=== PATIENT | male | born 1955 | race Caucasian/White ===

== ENCOUNTER 2016-10-23 04:02 | Emergency (ER) | payer OTHER ==
[~2016-10-23] VITALS: Ht 172.7 cm; Wt 78.2 kg
[2016-10-23] MEDS ORDERED: METO50 PO (04:11)
[2016-10-23] MEDS ORDERED: ASPI81 PO (04:11)
[2016-10-23] MEDS ORDERED: ALLO100T PO (04:11)
[2016-10-23] MEDS ORDERED: METF500T4 PO (04:11)
[2016-10-23] MEDS ORDERED: ATOR40TA28 PO (04:11)
[2016-10-23] MEDS ORDERED: FISH1CAP50 PO (04:11)
[2016-10-23] MEDS ORDERED: TELM1TAB2 PO (04:11)
[2016-10-23] MEDS ORDERED: GLIP10 PO (04:11)
[2016-10-23 04:55] LABS: BASOPHILS # (AUTO) 0.04 K/uL (0.00-0.20); BASOPHILS % (AUTO) 0.6 % (0.0-2.0); EOSINOPHILS # (AUTO) 0.23 K/uL (0.00-0.70); EOSINOPHILS % (AUTO) 3.35 % (1.0-6.0); HEMATOCRIT 47.7 % (41-53); HEMOGLOBIN 15.7 g/dL (13.5-17.5); LYMPHOCYTES # (AUTO) 2.1 K/uL (1.0-4.8); LYMPHOCYTES % (AUTO) 30.8 % (22.0-44.0); MEAN CORPUSCULAR HEMOGLOBIN 29.4 pg (26.0-34.0); MEAN CORPUSCULAR HGB CONC 32.8 G/dL (31.0-37.0); MEAN CORPUSCULAR VOLUME 90 fL (80-100); MONOCYTES # (AUTO) 0.7 K/uL (0.1-1.0); MONOCYTES % (AUTO) 10.6 % (2.0-9.0); NEUTROPHILS # (AUTO) 3.7 K/uL (1.8-7.7); NEUTROPHILS % (AUTO) 54.7 % (40.0-70.0); PLATELET COUNT (AUTO) 177 K/uL (150-450); RED BLOOD CELL COUNT(AUTO) 5.32 MIL/uL (4.50-5.90); RED CELL DISTRIBUTION WIDTH 13.4 % (11.5-14.5); WHITE BLOOD COUNT (AUTO) 6.8 K/uL (4.5-11.0)
[2016-10-23 05:02] LABS: ANION GAP 10 mmol/L (8-16); CALCIUM, TOTAL 9.9 mg/dL (8.8-10.5); CARBON DIOXIDE 31 mmol/L (22-29); CHLORIDE 101 mmol/L (98-107); CREATININE 1.21 mg/dL (0.60-1.30); GLOMERULAR FILTR. RATE CALC > 60 mL/min (>60); POTASSIUM 3.9 mmol/L (3.5-5.1); SODIUM SERUM 142 mmol/L (136-145); UREA NITROGEN, BLOOD 14 mg/dL (7-18)
[2016-10-23 05:09] LABS: ALANINE AMINOTRANSFERASE 92 U/L (12-78); ASPARTATE AMINOTRANSFERASE 30 U/L (15-37); BILIRUBIN,TOTAL 0.3 mg/dL (0.1-1.0); TOTAL PROTEIN, SERUM 8.2 g/dL (6.4-8.2)
[2016-10-23] MEDS ORDERED: DONNATAL/LIDOCAINE/MAALOX 55 ML BOTTLE PO ONE (06:30)
[2016-10-23 07:51] VITALS: BP 133/85
== END 2016-10-23 07:59 | disposition home or self-care (01) ==
LOC: EMS 04:04
DX: R07.89 Other chest pain (principal); K21.9 Gastro-esophageal reflux disease without esophagitis; I11.9 Hypertensive heart disease without heart failure; I25.10 Atherosclerotic heart disease of native coronary artery without angina pectoris; E78.00 Pure hypercholesterolemia, unspecified; E11.9 Type 2 diabetes mellitus without complications; Z79.82 Long term (current) use of aspirin
CPT/HCPCS: 82962; 93005; 99285

== ENCOUNTER 2020-04-19 16:28 | Inpatient (IN) | payer MEDICARE, OTHER ==
[~2020-04-19] VITALS: Ht 165.1 cm; Wt 59.4 kg
[~2020-04-19 16:28] MED LIST: ALLO100T2 PO; ASPI-728 PO; ATOR40TA28 PO; FISH1CAP50 PO; GLIP10 PO; METF-960 PO; METO50 PO; TELM1TAB2 PO
[2020-04-20 18:30] VITALS: BP 140/71
[2020-04-20] MEDS ORDERED: ACETAMINOPHEN 325 MG TABLET PO PRN (19:15)
[2020-04-20] MEDS ORDERED: DEXTROSE 50%-WATER 25 GM/50 ML SYRINGE IVP PRN (19:15)
[2020-04-20] MEDS: ATORVASTATIN CALCIUM 40 MG TABLET PO SCH (20:29)
[2020-04-20] MEDS: LevETIRAcetam 500 MG TABLET PO SCH (20:29)
[2020-04-20] MEDS: SENNA 187 MG TABLET PO SCH (20:29)
[2020-04-20] MEDS: DOCUSATE SODIUM 100 MG CAPSULE PO SCH (20:29)
[2020-04-20] MEDS: ENOXAPARIN SODIUM 40 MG/0.4 ML PF SYRINGE SQ SCH (20:30)
[2020-04-20] MEDS: INSULIN LISPRO 100 UNITS/ML SQ PRN (21:46)
[2020-04-20 22:29] LABS: GLUCOMETER DEV NAME(LOC) 2WR.1C; GLUCOSE,POINT OF CARE 271 MG/DL (70-110)
[2020-04-20] MEDS ORDERED: SODIUM CHLORIDE 0.9% 250 ML IV ONE (23:13)
[2020-04-20] MEDS: CEFEPIME HCL 2 GM in DEXTROSE 5%-WATER 50 ML IV SCH (23:26)
[2020-04-20] MEDS: 0.9% SODIUM CHLORIDE 10 ML SYRINGE IVP SCH (23:26)
[2020-04-21] VITALS: BP 113/67
[2020-04-21] MEDS: PANTOPRAZOLE SODIUM 40 MG DR TABLET PO SCH (06:00)
[2020-04-21 06:06] LABS: GLUCOMETER DEV NAME(LOC) 2WR.2B; GLUCOSE,POINT OF CARE 174 MG/DL (70-110)
[2020-04-21 07:55] LABS: BASOPHILS % (AUTO) 1.2 % (0.0-2.0); EOSINOPHILS % (AUTO) 0.8 % (1.0-6.0); HEMOGLOBIN 9.7 g/dL (13.5-17.5); LYMPHOCYTES # (AUTO) 1.7 K/uL (1.0-4.8); LYMPHOCYTES % (AUTO) 22.7 % (22.0-44.0); MEAN CORPUSCULAR HEMOGLOBIN 30.2 pg (26.0-34.0); MEAN CORPUSCULAR HGB CONC 32.4 G/dL (31.0-37.0); MEAN CORPUSCULAR VOLUME 93 fL (80-100); MONOCYTES # (AUTO) 0.6 K/uL (0.1-1.0); NEUTROPHILS # (AUTO) 5.1 K/uL (1.8-7.7); NEUTROPHILS % (AUTO) 67.3 % (40.0-70.0); PLATELET COUNT (AUTO) 346 K/uL (150-450); RED BLOOD CELL COUNT(AUTO) 3.23 MIL/uL (4.50-5.90); RED CELL DISTRIBUTION WIDTH 16.4 % (11.5-14.5)
[2020-04-21 08:00] VITALS: BP 118/71
[2020-04-21 08:12] LABS: ALANINE AMINOTRANSFERASE 39 U/L (12-78); ALBUMIN 2.2 g/dL (3.4-5.0); ALKALINE PHOSPHATASE 69 U/L (46-116); ANION GAP 6 mmol/L (8-16); ASPARTATE AMINOTRANSFERASE 21 U/L (15-37); BILIRUBIN,TOTAL 0.3 mg/dL (0.1-1.0); CALCIUM, TOTAL 8.4 mg/dL (8.8-10.5); CARBON DIOXIDE 27 mmol/L (22-29); CHLORIDE 105 mmol/L (98-107); GLOMERULAR FILTR. RATE CALC > 60 mL/min (>60); GLUCOSE,RANDOM 151 mg/dL (70-110); POTASSIUM 3.7 mmol/L (3.5-5.1); SODIUM SERUM 138 mmol/L (136-145); TOTAL PROTEIN, SERUM 6.1 g/dL (6.4-8.2); UREA NITROGEN, BLOOD 12 mg/dL (7-18)
[2020-04-21] MEDS: CEFEPIME HCL 2 GM in DEXTROSE 5%-WATER 50 ML IV SCH ×2 (08:14→15:33)
[2020-04-21] MEDS: 0.9% SODIUM CHLORIDE 10 ML SYRINGE IVP SCH ×2 (08:15→15:33)
[2020-04-21] MEDS: DEXAMETHASONE 2 MG TABLET PO SCH ×2 (08:15→20:41)
[2020-04-21] MEDS: DOCUSATE SODIUM 100 MG CAPSULE PO SCH ×2 (08:15→20:39)
[2020-04-21] MEDS: POLYETHYLENE GLYCOL 3350 17 GM PACKET PO SCH (08:16)
[2020-04-21] MEDS: LevETIRAcetam 500 MG TABLET PO SCH ×2 (08:16→20:39)
[2020-04-21] MEDS: ASPIRIN 81 MG DR TABLET PO SCH (08:16)
[2020-04-21 13:30] LABS: GLUCOMETER DEV NAME(LOC) 2WR.2B; GLUCOSE,POINT OF CARE 161 MG/DL (70-110)
[2020-04-21] MEDS: INSULIN LISPRO 100 UNITS/ML SQ PRN ×3 (13:51→20:54)
[2020-04-21 15:14] VITALS: BP 125/95
[2020-04-21] MEDS: MetFORMIN HCL 500 MG TABLET PO SCH (17:49)
[2020-04-21 18:15] LABS: GLUCOMETER DEV NAME(LOC) 2WR.2B; GLUCOSE,POINT OF CARE 185 MG/DL (70-110)
[2020-04-21] MEDS: MIRTAZAPINE 15 MG TABLET PO SCH (20:39)
[2020-04-21] MEDS: SENNA 187 MG TABLET PO SCH (20:39)
[2020-04-21] MEDS: ATORVASTATIN CALCIUM 40 MG TABLET PO SCH (20:39)
[2020-04-21] MEDS: ENOXAPARIN SODIUM 40 MG/0.4 ML PF SYRINGE SQ SCH (20:41)
[2020-04-21 21:54] LABS: GLUCOMETER DEV NAME(LOC) 2WR.2B; GLUCOSE,POINT OF CARE 185 MG/DL (70-110)
[2020-04-22] MEDS: 0.9% SODIUM CHLORIDE 10 ML SYRINGE IVP SCH ×4 (00:25→23:33)
[2020-04-22] MEDS: CEFEPIME HCL 2 GM in DEXTROSE 5%-WATER 50 ML IV SCH ×4 (00:25→23:33)
[2020-04-22 01:14] VITALS: BP 133/77
[2020-04-22] MEDS: PANTOPRAZOLE SODIUM 40 MG DR TABLET PO SCH (05:46)
[2020-04-22 06:12] LABS: GLUCOMETER DEV NAME(LOC) 2WR.1C; GLUCOSE,POINT OF CARE 172 MG/DL (70-110)
[2020-04-22 07:23] VITALS: BP 116/64
[2020-04-22] MEDS: DEXAMETHASONE 2 MG TABLET PO SCH (08:56)
[2020-04-22] MEDS: DOCUSATE SODIUM 100 MG CAPSULE PO SCH ×2 (08:56→21:10)
[2020-04-22] MEDS: MetFORMIN HCL 500 MG TABLET PO SCH ×2 (08:56→18:08)
[2020-04-22] MEDS: ASPIRIN 81 MG DR TABLET PO SCH (08:56)
[2020-04-22] MEDS: POLYETHYLENE GLYCOL 3350 17 GM PACKET PO SCH (08:56)
[2020-04-22] MEDS: LevETIRAcetam 500 MG TABLET PO SCH ×2 (08:56→21:08)
[2020-04-22] MEDS: INSULIN LISPRO 100 UNITS/ML SQ PRN ×4 (09:00→21:08)
[2020-04-22 15:25] VITALS: BP 128/70
[2020-04-22 19:31] LABS: GLUCOMETER DEV NAME(LOC) 2WR.2B; GLUCOSE,POINT OF CARE 132 MG/DL (70-110)
[2020-04-22 20:40] VITALS: BP 122/78
[2020-04-22] MEDS: ATORVASTATIN CALCIUM 40 MG TABLET PO SCH (21:08)
[2020-04-22] MEDS: MIRTAZAPINE 15 MG TABLET PO SCH (21:09)
[2020-04-22] MEDS: ENOXAPARIN SODIUM 40 MG/0.4 ML PF SYRINGE SQ SCH (21:09)
[2020-04-22] MEDS: SENNA 187 MG TABLET PO SCH (21:09)
[2020-04-22] MEDS: DEXAMETHASONE 1 MG TABLET PO SCH (21:10)
[2020-04-23 00:53] VITALS: BP 116/56
[2020-04-23 05:18] LABS: GLUCOMETER DEV NAME(LOC) 2WR.1C; GLUCOSE,POINT OF CARE 224 MG/DL (70-110)
[2020-04-23 05:18] LABS: GLUCOMETER DEV NAME(LOC) 2WR.1C; GLUCOSE,POINT OF CARE 192 MG/DL (70-110)
[2020-04-23 05:48] LABS: GLUCOMETER DEV NAME(LOC) 2WR.2B; GLUCOSE,POINT OF CARE 179 MG/DL (70-110)
[2020-04-23] MEDS: PANTOPRAZOLE SODIUM 40 MG DR TABLET PO SCH (06:11)
[2020-04-23 06:42] VITALS: BP 111/64
[2020-04-23] MEDS: CEFEPIME HCL 2 GM in DEXTROSE 5%-WATER 50 ML IV SCH ×3 (07:53→22:57)
[2020-04-23] MEDS: 0.9% SODIUM CHLORIDE 10 ML SYRINGE IVP SCH ×3 (07:54→22:58)
[2020-04-23] MEDS: INSULIN LISPRO 100 UNITS/ML SQ PRN ×4 (09:06→22:13)
[2020-04-23] MEDS: DOCUSATE SODIUM 100 MG CAPSULE PO SCH ×2 (09:15→20:25)
[2020-04-23] MEDS: ASPIRIN 81 MG DR TABLET PO SCH (09:15)
[2020-04-23] MEDS: LevETIRAcetam 500 MG TABLET PO SCH ×2 (09:15→20:25)
[2020-04-23] MEDS: POLYETHYLENE GLYCOL 3350 17 GM PACKET PO SCH (09:15)
[2020-04-23] MEDS: DEXAMETHASONE 1 MG TABLET PO SCH ×2 (09:16→20:25)
[2020-04-23] MEDS: MetFORMIN HCL 500 MG TABLET PO SCH ×2 (09:24→17:46)
[2020-04-23 15:08] LABS: BASOPHILS % (AUTO) 0.8 % (0.0-2.0); EOSINOPHILS % (AUTO) 0.9 % (1.0-6.0); HEMATOCRIT 36.7 % (41-53); HEMOGLOBIN 11.7 g/dL (13.5-17.5); LYMPHOCYTES # (AUTO) 1.3 K/uL (1.0-4.8); LYMPHOCYTES % (AUTO) 12.5 % (22.0-44.0); MEAN CORPUSCULAR HEMOGLOBIN 30.1 pg (26.0-34.0); MEAN CORPUSCULAR HGB CONC 31.8 G/dL (31.0-37.0); MEAN CORPUSCULAR VOLUME 95 fL (80-100); MONOCYTES # (AUTO) 0.6 K/uL (0.1-1.0); MONOCYTES % (AUTO) 5.7 % (2.0-9.0); NEUTROPHILS # (AUTO) 8.1 K/uL (1.8-7.7); NEUTROPHILS % (AUTO) 80.1 % (40.0-70.0); PLATELET COUNT (AUTO) 412 K/uL (150-450); RED BLOOD CELL COUNT(AUTO) 3.88 MIL/uL (4.50-5.90); RED CELL DISTRIBUTION WIDTH 17.5 % (11.5-14.5)
[2020-04-23 15:37] LABS: GLUCOMETER DEV NAME(LOC) 2WR.1C; GLUCOSE,POINT OF CARE 167 MG/DL (70-110)
[2020-04-23 15:50] LABS: ANION GAP 12 mmol/L (8-16); CALCIUM, TOTAL 9.6 mg/dL (8.8-10.5); CARBON DIOXIDE 25 mmol/L (22-29); CHLORIDE 98 mmol/L (98-107); CREATININE 0.97 mg/dL (0.60-1.30); GLOMERULAR FILTR. RATE CALC > 60 mL/min (>60); GLUCOSE,RANDOM 180 mg/dL (70-110); POTASSIUM 4.4 mmol/L (3.5-5.1); SODIUM SERUM 135 mmol/L (136-145); UREA NITROGEN, BLOOD 14 mg/dL (7-18)
[2020-04-23 16:10] VITALS: BP 104/75
[2020-04-23 16:57] VITALS: BP 114/72
[2020-04-23 19:30] LABS: GLUCOMETER DEV NAME(LOC) 2WR.1C; GLUCOSE,POINT OF CARE 169 MG/DL (70-110)
[2020-04-23] MEDS: SENNA 187 MG TABLET PO SCH (20:25)
[2020-04-23] MEDS: MIRTAZAPINE 15 MG TABLET PO SCH (20:25)
[2020-04-23] MEDS: ATORVASTATIN CALCIUM 40 MG TABLET PO SCH (20:25)
[2020-04-23] MEDS: ENOXAPARIN SODIUM 40 MG/0.4 ML PF SYRINGE SQ SCH (20:26)
[2020-04-23 23:35] LABS: GLUCOMETER DEV NAME(LOC) 2WR.1C; GLUCOSE,POINT OF CARE 152 MG/DL (70-110)
[2020-04-24] VITALS: BP 112/62
[2020-04-24] MEDS: PANTOPRAZOLE SODIUM 40 MG DR TABLET PO SCH (06:00)
[2020-04-24 08:14] VITALS: BP 99/63
[2020-04-24 08:16] VITALS: BP 95/64
[2020-04-24] MEDS: CEFEPIME HCL 2 GM in DEXTROSE 5%-WATER 50 ML IV SCH ×3 (08:53→23:51)
[2020-04-24] MEDS: INSULIN LISPRO 100 UNITS/ML SQ PRN ×4 (08:53→20:55)
[2020-04-24] MEDS: LevETIRAcetam 500 MG TABLET PO SCH ×2 (08:54→20:39)
[2020-04-24] MEDS: POLYETHYLENE GLYCOL 3350 17 GM PACKET PO SCH (08:54)
[2020-04-24] MEDS: ASPIRIN 81 MG DR TABLET PO SCH (08:54)
[2020-04-24] MEDS: DOCUSATE SODIUM 100 MG CAPSULE PO SCH ×2 (08:54→20:40)
[2020-04-24] MEDS: DEXAMETHASONE 1 MG TABLET PO SCH ×2 (08:54→20:39)
[2020-04-24] MEDS: MetFORMIN HCL 500 MG TABLET PO SCH ×2 (08:54→17:25)
[2020-04-24] MEDS: 0.9% SODIUM CHLORIDE 10 ML SYRINGE IVP SCH ×3 (08:55→23:55)
[2020-04-24] MEDS ORDERED: SODIUM CHLORIDE 0.9% 500 ML IV ONE ×2 (09:07→17:30)
[2020-04-24 10:00] VITALS: BP 117/72
[2020-04-24] MEDS ORDERED: ChlorproMAZINE HCL 25 MG TABLET PO PRN (11:30)
[2020-04-24 12:25] LABS: GLUCOMETER DEV NAME(LOC) 2WR.2B; GLUCOSE,POINT OF CARE 181 MG/DL (70-110)
[2020-04-24] MEDS: BACLOFEN 10 MG TABLET PO SCH ×2 (15:51→20:40)
[2020-04-24 16:05] VITALS: BP 93/57
[2020-04-24 19:03] LABS: GLUCOMETER DEV NAME(LOC) 2WR.1C; GLUCOSE,POINT OF CARE 212 MG/DL (70-110)
[2020-04-24 19:04] LABS: GLUCOMETER DEV NAME(LOC) 2WR.2B; GLUCOSE,POINT OF CARE 194 MG/DL (70-110)
[2020-04-24] MEDS: MIRTAZAPINE 15 MG TABLET PO SCH (20:39)
[2020-04-24] MEDS: ENOXAPARIN SODIUM 40 MG/0.4 ML PF SYRINGE SQ SCH (20:39)
[2020-04-24] MEDS: SENNA 187 MG TABLET PO SCH (20:39)
[2020-04-24] MEDS: ATORVASTATIN CALCIUM 40 MG TABLET PO SCH (20:39)
[2020-04-24 21:58] VITALS: BP 113/72
[2020-04-24 22:15] LABS: GLUCOMETER DEV NAME(LOC) 2WR.1C; GLUCOSE,POINT OF CARE 166 MG/DL (70-110)
[2020-04-25] VITALS: BP 108/70
[2020-04-25] MEDS: PANTOPRAZOLE SODIUM 40 MG DR TABLET PO SCH (05:51)
[2020-04-25 07:07] VITALS: BP 95/60
[2020-04-25 08:02] LABS: BASOPHILS % (AUTO) 0.7 % (0.0-2.0); EOSINOPHILS % (AUTO) 1.3 % (1.0-6.0); LYMPHOCYTES # (AUTO) 1.3 K/uL (1.0-4.8); LYMPHOCYTES % (AUTO) 20.8 % (22.0-44.0); MEAN CORPUSCULAR HEMOGLOBIN 30.2 pg (26.0-34.0); MEAN CORPUSCULAR HGB CONC 32.3 G/dL (31.0-37.0); MEAN CORPUSCULAR VOLUME 94 fL (80-100); MONOCYTES # (AUTO) 0.6 K/uL (0.1-1.0); MONOCYTES % (AUTO) 9.4 % (2.0-9.0); NEUTROPHILS # (AUTO) 4.1 K/uL (1.8-7.7); NEUTROPHILS % (AUTO) 67.8 % (40.0-70.0); PLATELET COUNT (AUTO) 294 K/uL (150-450); RED BLOOD CELL COUNT(AUTO) 3.31 MIL/uL (4.50-5.90)
[2020-04-25] MEDS: CEFEPIME HCL 2 GM in DEXTROSE 5%-WATER 50 ML IV SCH ×3 (08:04→23:40)
[2020-04-25] MEDS: 0.9% SODIUM CHLORIDE 10 ML SYRINGE IVP SCH ×3 (08:08→23:40)
[2020-04-25 08:10] LABS: ANION GAP 8 mmol/L (8-16); CARBON DIOXIDE 28 mmol/L (22-29); CHLORIDE 102 mmol/L (98-107); CREATININE 0.86 mg/dL (0.60-1.30); GLOMERULAR FILTR. RATE CALC > 60 mL/min (>60); GLUCOSE,RANDOM 212 mg/dL (70-110); POTASSIUM 4.3 mmol/L (3.5-5.1); SODIUM SERUM 138 mmol/L (136-145); UREA NITROGEN, BLOOD 15 mg/dL (7-18)
[2020-04-25] MEDS: LevETIRAcetam 500 MG TABLET PO SCH ×2 (08:15→20:23)
[2020-04-25] MEDS: DOCUSATE SODIUM 100 MG CAPSULE PO SCH ×2 (08:15→20:23)
[2020-04-25] MEDS: ASPIRIN 81 MG DR TABLET PO SCH (08:15)
[2020-04-25] MEDS: POLYETHYLENE GLYCOL 3350 17 GM PACKET PO SCH (08:16)
[2020-04-25] MEDS: BACLOFEN 10 MG TABLET PO SCH ×3 (08:16→20:22)
[2020-04-25] MEDS: DEXAMETHASONE 1 MG TABLET PO SCH ×2 (08:17→20:22)
[2020-04-25] MEDS: MetFORMIN HCL 500 MG TABLET PO SCH ×2 (09:33→17:31)
[2020-04-25] MEDS: INSULIN LISPRO 100 UNITS/ML SQ PRN ×3 (09:36→17:34)
[2020-04-25] MEDS ORDERED: SODIUM CHLORIDE 0.9% 1,000 ML IV ONE ×2 (11:45)
[2020-04-25 15:09] LABS: GLUCOMETER DEV NAME(LOC) 2WR.2B; GLUCOSE,POINT OF CARE 143 MG/DL (70-110)
[2020-04-25 15:24] LABS: GLUCOMETER DEV NAME(LOC) 2WR.1C; GLUCOSE,POINT OF CARE 216 MG/DL (70-110)
[2020-04-25 17:51] VITALS: BP 103/56
[2020-04-25 18:44] LABS: GLUCOMETER DEV NAME(LOC) 2WR.1C; GLUCOSE,POINT OF CARE 178 MG/DL (70-110)
[2020-04-25] MEDS: ATORVASTATIN CALCIUM 40 MG TABLET PO SCH (20:23)
[2020-04-25] MEDS: SENNA 187 MG TABLET PO SCH (20:23)
[2020-04-25] MEDS: ENOXAPARIN SODIUM 40 MG/0.4 ML PF SYRINGE SQ SCH (20:23)
[2020-04-25] MEDS: MIRTAZAPINE 15 MG TABLET PO SCH (20:23)
[2020-04-26] VITALS: BP 128/71
[2020-04-26 05:25] LABS: GLUCOMETER DEV NAME(LOC) 2WR.1C; GLUCOSE,POINT OF CARE 135 MG/DL (70-110)
[2020-04-26 05:33] LABS: GLUCOMETER DEV NAME(LOC) 2WR.2B; GLUCOSE,POINT OF CARE 183 MG/DL (70-110)
[2020-04-26] MEDS: PANTOPRAZOLE SODIUM 40 MG DR TABLET PO SCH (05:45)
[2020-04-26 07:09] VITALS: BP 94/54
[2020-04-26] MEDS: CEFEPIME HCL 2 GM in DEXTROSE 5%-WATER 50 ML IV SCH ×4 (08:09→23:06)
[2020-04-26] MEDS: DOCUSATE SODIUM 100 MG CAPSULE PO SCH ×2 (08:43→20:43)
[2020-04-26] MEDS: BACLOFEN 10 MG TABLET PO SCH ×3 (08:44→20:43)
[2020-04-26] MEDS: LevETIRAcetam 500 MG TABLET PO SCH ×2 (08:44→20:42)
[2020-04-26] MEDS: ASPIRIN 81 MG DR TABLET PO SCH (08:44)
[2020-04-26] MEDS: POLYETHYLENE GLYCOL 3350 17 GM PACKET PO SCH (08:44)
[2020-04-26] MEDS: DEXAMETHASONE 1 MG TABLET PO SCH ×2 (08:44→20:43)
[2020-04-26] MEDS: MetFORMIN HCL 500 MG TABLET PO SCH (08:56)
[2020-04-26] MEDS: INSULIN LISPRO 100 UNITS/ML SQ PRN ×4 (09:22→20:56)
[2020-04-26] MEDS ORDERED: SODIUM CHLORIDE 0.9% 250 ML IV ONE (10:14)
[2020-04-26] MEDS: 0.9% SODIUM CHLORIDE 10 ML SYRINGE IVP SCH ×3 (10:44→23:07)
[2020-04-26 11:30] VITALS: BP 109/73
[2020-04-26] MEDS: MIDODRINE HCL 2.5 MG TABLET PO SCH ×2 (12:53→20:44)
[2020-04-26 13:09] LABS: GLUCOMETER DEV NAME(LOC) 2WR.2B; GLUCOSE,POINT OF CARE 215 MG/DL (70-110)
[2020-04-26 17:09] VITALS: BP 116/65
[2020-04-26] MEDS: MetFORMIN HCL 850 MG TABLET PO SCH (17:34)
[2020-04-26 19:03] LABS: GLUCOMETER DEV NAME(LOC) 2WR.1C; GLUCOSE,POINT OF CARE 185 MG/DL (70-110)
[2020-04-26 20:30] VITALS: BP 114/65
[2020-04-26] MEDS: MIRTAZAPINE 15 MG TABLET PO SCH (20:42)
[2020-04-26] MEDS: ATORVASTATIN CALCIUM 40 MG TABLET PO SCH (20:43)
[2020-04-26] MEDS: ENOXAPARIN SODIUM 40 MG/0.4 ML PF SYRINGE SQ SCH (20:43)
[2020-04-26] MEDS: SENNA 187 MG TABLET PO SCH (20:43)
[2020-04-26 23:06] LABS: GLUCOMETER DEV NAME(LOC) 2WR.2B; GLUCOSE,POINT OF CARE 145 MG/DL (70-110)
[2020-04-27] VITALS: BP 111/64
[2020-04-27] MEDS: PANTOPRAZOLE SODIUM 40 MG DR TABLET PO SCH (06:05)
[2020-04-27 06:55] VITALS: BP 101/63
[2020-04-27] MEDS: 0.9% SODIUM CHLORIDE 10 ML SYRINGE IVP SCH ×3 (07:53→23:42)
[2020-04-27] MEDS: CEFEPIME HCL 2 GM in DEXTROSE 5%-WATER 50 ML IV SCH ×3 (07:54→23:29)
[2020-04-27] MEDS: LevETIRAcetam 500 MG TABLET PO SCH ×2 (08:12→20:04)
[2020-04-27] MEDS: DEXAMETHASONE 1 MG TABLET PO SCH ×2 (08:12→20:05)
[2020-04-27] MEDS: DOCUSATE SODIUM 100 MG CAPSULE PO SCH ×2 (08:12→20:04)
[2020-04-27] MEDS: BACLOFEN 10 MG TABLET PO SCH ×3 (08:12→20:05)
[2020-04-27] MEDS: ASPIRIN 81 MG DR TABLET PO SCH (08:12)
[2020-04-27] MEDS: MetFORMIN HCL 850 MG TABLET PO SCH ×2 (08:12→17:47)
[2020-04-27] MEDS: MIDODRINE HCL 2.5 MG TABLET PO SCH ×2 (08:13→20:05)
[2020-04-27] MEDS: POLYETHYLENE GLYCOL 3350 17 GM PACKET PO SCH (08:13)
[2020-04-27] MEDS ORDERED: ERGOCALCIFEROL (VIT D2) 50,000 UNITS [1,250 MCG] CAPSULE PO SCH (09:00)
[2020-04-27] MEDS: INSULIN LISPRO 100 UNITS/ML SQ PRN ×4 (09:03→20:21)
[2020-04-27 15:34] LABS: GLUCOMETER DEV NAME(LOC) 2WR.1C; GLUCOSE,POINT OF CARE 153 MG/DL (70-110)
[2020-04-27 15:34] LABS: GLUCOMETER DEV NAME(LOC) 2WR.2B; GLUCOSE,POINT OF CARE 142 MG/DL (70-110)
[2020-04-27 16:26] VITALS: BP 111/58
[2020-04-27] MEDS: SENNA 187 MG TABLET PO SCH (20:04)
[2020-04-27] MEDS: ATORVASTATIN CALCIUM 40 MG TABLET PO SCH (20:04)
[2020-04-27] MEDS: ENOXAPARIN SODIUM 40 MG/0.4 ML PF SYRINGE SQ SCH (20:05)
[2020-04-27] MEDS: MIRTAZAPINE 15 MG TABLET PO SCH (20:05)
[2020-04-28] VITALS: BP 129/77
[2020-04-28 01:07] LABS: GLUCOMETER DEV NAME(LOC) 2WR.1C; GLUCOSE,POINT OF CARE 206 MG/DL (70-110)
[2020-04-28] MEDS: PANTOPRAZOLE SODIUM 40 MG DR TABLET PO SCH (05:47)
[2020-04-28 06:43] LABS: GLUCOMETER DEV NAME(LOC) 2WR.2B; GLUCOSE,POINT OF CARE 150 MG/DL (70-110)
[2020-04-28 07:37] VITALS: BP 102/60
[2020-04-28] MEDS: DEXAMETHASONE 1 MG TABLET PO SCH ×2 (08:54→20:49)
[2020-04-28] MEDS: POLYETHYLENE GLYCOL 3350 17 GM PACKET PO SCH (08:54)
[2020-04-28] MEDS: CEFEPIME HCL 2 GM in DEXTROSE 5%-WATER 50 ML IV SCH ×3 (08:54→23:39)
[2020-04-28] MEDS: BACLOFEN 10 MG TABLET PO SCH ×3 (08:55→20:48)
[2020-04-28] MEDS: ASPIRIN 81 MG DR TABLET PO SCH (08:55)
[2020-04-28] MEDS: LevETIRAcetam 500 MG TABLET PO SCH ×2 (08:55→20:48)
[2020-04-28] MEDS: DOCUSATE SODIUM 100 MG CAPSULE PO SCH ×2 (08:55→20:48)
[2020-04-28] MEDS: MIDODRINE HCL 2.5 MG TABLET PO SCH ×2 (08:55→20:58)
[2020-04-28] MEDS: MetFORMIN HCL 850 MG TABLET PO SCH ×2 (08:55→17:43)
[2020-04-28] MEDS: 0.9% SODIUM CHLORIDE 10 ML SYRINGE IVP SCH ×3 (08:56→23:47)
[2020-04-28] MEDS: INSULIN LISPRO 100 UNITS/ML SQ PRN ×4 (09:01→21:11)
[2020-04-28 12:50] LABS: GLUCOMETER DEV NAME(LOC) 2WR.1C; GLUCOSE,POINT OF CARE 161 MG/DL (70-110)
[2020-04-28 16:05] VITALS: BP 115/60
[2020-04-28 18:18] LABS: GLUCOMETER DEV NAME(LOC) 2WR.1C; GLUCOSE,POINT OF CARE 171 MG/DL (70-110)
[2020-04-28] MEDS: MIRTAZAPINE 15 MG TABLET PO SCH (20:48)
[2020-04-28] MEDS: ATORVASTATIN CALCIUM 40 MG TABLET PO SCH (20:48)
[2020-04-28] MEDS: SENNA 187 MG TABLET PO SCH (20:48)
[2020-04-28] MEDS: ENOXAPARIN SODIUM 40 MG/0.4 ML PF SYRINGE SQ SCH (20:58)
[2020-04-28 23:13] LABS: GLUCOMETER DEV NAME(LOC) 2WR.2B; GLUCOSE,POINT OF CARE 178 MG/DL (70-110)
[2020-04-29] VITALS: BP 113/62
[2020-04-29] MEDS: PANTOPRAZOLE SODIUM 40 MG DR TABLET PO SCH (05:35)
[2020-04-29 05:44] LABS: GLUCOMETER DEV NAME(LOC) 2WR.2B; GLUCOSE,POINT OF CARE 176 MG/DL (70-110)
[2020-04-29 07:53] VITALS: BP 94/56
[2020-04-29] MEDS: ASPIRIN 81 MG DR TABLET PO SCH (08:18)
[2020-04-29] MEDS: LevETIRAcetam 500 MG TABLET PO SCH ×2 (08:18→20:46)
[2020-04-29] MEDS: MetFORMIN HCL 850 MG TABLET PO SCH ×2 (08:18→17:46)
[2020-04-29] MEDS: BACLOFEN 10 MG TABLET PO SCH ×3 (08:19→20:46)
[2020-04-29] MEDS: MIDODRINE HCL 2.5 MG TABLET PO SCH ×2 (08:19→20:52)
[2020-04-29] MEDS: DEXAMETHASONE 1 MG TABLET PO SCH ×2 (08:19→20:46)
[2020-04-29] MEDS: CEFEPIME HCL 2 GM in DEXTROSE 5%-WATER 50 ML IV SCH ×3 (08:20→23:14)
[2020-04-29] MEDS: INSULIN LISPRO 100 UNITS/ML SQ PRN ×4 (08:20→21:05)
[2020-04-29] MEDS: DOCUSATE SODIUM 100 MG CAPSULE PO SCH ×2 (08:21→20:45)
[2020-04-29] MEDS: 0.9% SODIUM CHLORIDE 10 ML SYRINGE IVP SCH ×3 (08:21→23:13)
[2020-04-29] MEDS: POLYETHYLENE GLYCOL 3350 17 GM PACKET PO SCH (08:22)
[2020-04-29 14:32] LABS: GLUCOMETER DEV NAME(LOC) 2WR.1C; GLUCOSE,POINT OF CARE 124 MG/DL (70-110)
[2020-04-29 17:08] VITALS: BP 98/50
[2020-04-29 18:38] LABS: GLUCOMETER DEV NAME(LOC) 2WR.1C; GLUCOSE,POINT OF CARE 199 MG/DL (70-110)
[2020-04-29 20:45] VITALS: BP 118/66
[2020-04-29] MEDS: ATORVASTATIN CALCIUM 40 MG TABLET PO SCH (20:45)
[2020-04-29] MEDS: ENOXAPARIN SODIUM 40 MG/0.4 ML PF SYRINGE SQ SCH (20:45)
[2020-04-29] MEDS: MIRTAZAPINE 15 MG TABLET PO SCH (20:46)
[2020-04-29] MEDS: SENNA 187 MG TABLET PO SCH (20:46)
[2020-04-29 21:52] LABS: GLUCOMETER DEV NAME(LOC) 2WR.1C; GLUCOSE,POINT OF CARE 185 MG/DL (70-110)
[2020-04-30 00:10] VITALS: BP 121/62
[2020-04-30 06:06] LABS: GLUCOMETER DEV NAME(LOC) 2WR.1C; GLUCOSE,POINT OF CARE 173 MG/DL (70-110)
[2020-04-30] MEDS: PANTOPRAZOLE SODIUM 40 MG DR TABLET PO SCH (06:46)
[2020-04-30] MEDS: INSULIN LISPRO 100 UNITS/ML SQ PRN (08:19)
[2020-04-30] MEDS: CEFEPIME HCL 2 GM in DEXTROSE 5%-WATER 50 ML IV SCH (08:20)
[2020-04-30] MEDS: POLYETHYLENE GLYCOL 3350 17 GM PACKET PO SCH (08:20)
[2020-04-30] MEDS: ASPIRIN 81 MG DR TABLET PO SCH (08:21)
[2020-04-30] MEDS: LevETIRAcetam 500 MG TABLET PO SCH (08:21)
[2020-04-30] MEDS: DEXAMETHASONE 1 MG TABLET PO SCH (08:21)
[2020-04-30] MEDS: MetFORMIN HCL 850 MG TABLET PO SCH (08:21)
[2020-04-30] MEDS: MIDODRINE HCL 2.5 MG TABLET PO SCH (08:22)
[2020-04-30] MEDS: DOCUSATE SODIUM 100 MG CAPSULE PO SCH (08:22)
[2020-04-30] MEDS: BACLOFEN 10 MG TABLET PO SCH (08:22)
[2020-04-30] MEDS: 0.9% SODIUM CHLORIDE 10 ML SYRINGE IVP SCH (08:24)
[2020-04-30 10:01] VITALS: BP 94/54
[2020-04-30] MEDS ORDERED: BACL5TAB PO (10:28)
[2020-04-30] MEDS ORDERED: PANT-31 PO (10:30)
[2020-04-30] MEDS ORDERED: DEXA0.5E6 PO (10:30)
[2020-04-30] MEDS ORDERED: ERGO500014 PO (10:34)
[2020-04-30] MEDS ORDERED: LEVE500T8 PO (10:36)
[2020-04-30] MEDS ORDERED: MIRT-89 PO (10:36)
[2020-04-30] MEDS ORDERED: MIDO2.5T19 PO (10:37)
[2020-04-30] MEDS ORDERED: CEFE2I IV (10:39)
[2020-04-30] MEDS ORDERED: [UNRECOGNIZED DRUG - CODE] IV (10:41)
[2020-04-30] MEDS ORDERED: DEXA1 PO (10:46)
[2020-04-30] MEDS ORDERED: POLY17PO PO (10:46)
[2020-04-30] MEDS ORDERED: INSU100V SQ (10:48)
[2020-04-30 13:09] LABS: GLUCOMETER DEV NAME(LOC) 2WR.2B; GLUCOSE,POINT OF CARE 193 MG/DL (70-110)
[2020-05-20] MEDS ORDERED: CYANOCOBALAMIN 1,000 MCG/ML VIAL IM SCH (09:00)
== END 2020-04-30 14:45 | disposition home health service (06) | DRG 54 ==
LOC: 2WR 04-20 18:34
PROVIDERS: ADMIT Physical Medicine & Rehabilitation; ATTEND Physical Medicine & Rehabilitation
PROC: 05HY33Z Insertion of Infusion Device into Upper Vein, Percutaneous Approach (ICD-10-PCS; principal; 2020-04-24)
PROC: B54MZZ3 Ultrasonography of Right Upper Extremity Veins, Intravascular (ICD-10-PCS; 2020-04-24)
DX: C71.9 Malignant neoplasm of brain, unspecified (principal); G04.90 Encephalitis and encephalomyelitis, unspecified; E43 Unspecified severe protein-calorie malnutrition; L03.90 Cellulitis, unspecified; G81.91 Hemiplegia, unspecified affecting right dominant side; Z86.16 Personal history of COVID-19; G40.909 Epilepsy, unspecified, not intractable, without status epilepticus; E11.9 Type 2 diabetes mellitus without complications; I10 Essential (primary) hypertension; E78.5 Hyperlipidemia, unspecified; M10.9 Gout, unspecified; N52.9 Male erectile dysfunction, unspecified; D64.9 Anemia, unspecified; Z95.5 Presence of coronary angioplasty implant and graft; I25.2 Old myocardial infarction; R00.0 Tachycardia, unspecified; R13.11 Dysphagia, oral phase; R06.6 Hiccough; I95.1 Orthostatic hypotension; D63.8 Anemia in other chronic diseases classified elsewhere; I25.10 Atherosclerotic heart disease of native coronary artery without angina pectoris; Z79.01 Long term (current) use of anticoagulants; Z68.21 Body mass index [BMI] 21.0-21.9, adult
CPT/HCPCS: 36245; 36569; 76937; 84443; 87081; 92507; 92523; 93005; 97110; 97112; 97116; 97163; 97166; 97530; 97535; 99366; J0692; J1650; J7030; J7040; J7050; J7060; J8540